=== PATIENT | male | born 1990 | race Caucasian/White ===

== ENCOUNTER 2020-07-11 20:20 | Emergency (ER) | payer BC, OTHER ==
[2020-07-11] MEDS ORDERED: Cyclobenzaprine 10 MG Tab PO ONE ×2 (20:21→22:14)
[2020-07-11] MEDS ORDERED: Acetaminophen/HYDROcodone 325-10 MG Tab PO ONE (22:14)
--- NOTE | 2020-07-11 23:29 | CT ---
PROCEDURE INFORMATION: Exam: CT Thoracic Spine Without Contrast Exam date and time: 07/11/2020 10:31 PM Age: 30 years old Clinical indication: Injury or trauma; Fall; Blunt trauma (contusions or hematomas); Additional info: Jumping up for ball fell, missed feet rib back eddie TECHNIQUE: Imaging protocol: Computed tomography images of the thoracic spine without contrast. Radiation optimization: All CT scans at this facility use at least one of these dose optimization techniques: automated exposure control; mA and/or kV adjustment per patient size (includes targeted exams where dose is matched to clinical indication); or iterative reconstruction. COMPARISON: No relevant prior studies available. FINDINGS: Vertebrae: No acute fracture. Normal alignment. Discs/Spinal canal/Neural foramina: No significant disc protrusion. No severe spinal canal stenosis. No significant neural foraminal narrowing. Soft tissues: Unremarkable. IMPRESSION: Unremarkable CT Spine.
--- NOTE | 2020-07-11 23:32 | CT ---
PROCEDURE INFORMATION: Exam: CT Chest Without Contrast; Diagnostic Exam date and time: 07/11/2020 10:31 PM Age: 30 years old Clinical indication: Injury or trauma; Fall; Blunt trauma (contusions or hematomas); Additional info: Jumping up for ball fell, missed feet rib back eddie TECHNIQUE: Imaging protocol: Diagnostic computed tomography of the chest without contrast. Radiation optimization: All CT scans at this facility use at least one of these dose optimization techniques: automated exposure control; mA and/or kV adjustment per patient size (includes targeted exams where dose is matched to clinical indication); or iterative reconstruction. COMPARISON: No relevant prior studies available. FINDINGS: Lungs: Unremarkable. No consolidation. No masses. Pleural spaces: Unremarkable. No pneumothorax. No pleural effusion. Heart: Unremarkable. No cardiomegaly. No pericardial effusion. Aorta: Unremarkable. No aortic aneurysm. Lymph nodes: Unremarkable. No enlarged lymph nodes. Bones/joints: Unremarkable. No acute fracture. Soft tissues: Unremarkable. IMPRESSION: No acute findings.
--- NOTE | 2020-07-11 23:37 | CT ---
PROCEDURE INFORMATION: Exam: CT Lumbar Spine Without Contrast Exam date and time: 07/11/2020 10:31 PM Age: 30 years old Clinical indication: Injury or trauma; Fall; Blunt trauma (contusions or hematomas); Additional info: Jumping up for ball fell, missed feet rib back eddie TECHNIQUE: Imaging protocol: Computed tomography images of the lumbar spine without contrast. Radiation optimization: All CT scans at this facility use at least one of these dose optimization techniques: automated exposure control; mA and/or kV adjustment per patient size (includes targeted exams where dose is matched to clinical indication); or iterative reconstruction. COMPARISON: No relevant prior studies available. FINDINGS: Vertebrae: No acute fracture. Normal alignment. Discs/Spinal canal/Neural foramina: No significant disc protrusion. No severe spinal canal stenosis. No significant neural foraminal narrowing. Soft tissues: Unremarkable. IMPRESSION: No acute findings.
[2020-07-11] MEDS ORDERED: Cyclobenzaprine 10 MG Tab ONE (23:44)
--- NOTE | 2020-07-11 23:46 | EDM.PDOC ---
ED HPI GENERAL MEDICAL PROBLEM - General Chief Complaint: Back Pain or Injury Stated Complaint: FELL PAIN IN BACK, RIBS, SHOULDER Time Seen by Provider: 07/11/20 21:40 Source of Information: Reports: Patient, RN History Limitations: Reports: No Limitations - History of Present Illness INITIAL COMMENTS - FREE TEXT/NARRATIVE: ED with c/o left rib anterior and later, thoraci and low back pain. Stated playing softball and jumped up for ball missed landing and landed on back and side No loss of consciousness, No neck pain. Pain with any movement and breathing. Middle Back Pain Score (Numeric/FACES): 9 - Related Data Allergies Allergy/AdvReac Type Severity Reaction Status Date / Time No Known Allergies Allergy Verified 07/11/20 21:32 Home Meds: Home Meds . [No Known Home Meds] 07/11/20 [History] Past Medical History Immunologic History: Reports: None Social & Family History - Tobacco Use Tobacco Use Status *Q: Never Tobacco User Second Hand Smoke Exposure: No - Caffeine Use Caffeine Use: Reports: Coffee, Energy Drinks, Soda, Tea, Other - Recreational Drug Use Recreational Drug Use: No ED ROS GENERAL - Review of Systems Review Of Systems: Comprehensive ROS is negative, except as noted in HPI. ED EXAM, UPPER BACK/NECK PAIN - Physical Exam Exam: See Below Exam Limited By: No Limitations General Appearance: Alert, Moderate Distress Eye Exam: Bilateral Eye: EOMI Ears Exam: Normal External Exam, Hearing Grossly Normal Nose Exam: Normal Inspection Throat/Mouth Exam: Normal Inspection, Normal Voice, No Airway Compromise Head Exam: Atraumatic, Normocephalic Neck Exam: Full Range of Motion. No: Tender Midline Nexus Criteria: Painful Distraction Injuries. No: Posterior, Midline Cervical Tenderness, Evidence of Intoxication, Altered Level of Consciousness, Focal Neurological Deficit Cardiovascular/Respiratory: Regular Rate, Rhythm, Normal Peripheral Pulses, No JVD, No Respiratory Distress, Other (left lateral posterior chest wall tenderness with movement palpation). 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, No Motor/Sensory Deficits Psychiatric: Normal Affect Skin Exam: Normal Color, Warm/Dry Course - Vital Signs Last Recorded V/S: Last Vital Signs Temp 97.9 F 07/11/20 21:26 Pulse 84 07/11/20 23:49 Resp 18 07/11/20 23:49 BP 128/65 07/11/20 23:49 Pulse Ox 96 07/11/20 23:49 - Orders/Labs/Meds Labs: Laboratory Tests 07/11/20 Range/Units 22:14 Urine Color Yellow (YELLOW) Urine Appearance Clear (CLEAR) Urine pH 6.5 (5.0-9.0) Ur Specific [place] >= 1.030 (1.005-1.030) Urine Protein Negative (NEGATIVE) Urine Glucose (UA) Negative (NEGATIVE) Urine Ketones Trace H (NEGATIVE) Urine Occult Blood Negative (NEGATIVE) Urine Nitrite Negative (NEGATIVE) Urine Bilirubin Negative (NEGATIVE) Urine Urobilinogen 0.2 (0.2-1.0) mg/dL Ur Leukocyte Esterase Negative (NEGATIVE) Meds: Medications Discontinued Medications Generic Name Dose Route Start Last Admin Trade Name Romy PRN Reason Stop Dose Admin Hydrocodone Bitart/Acetaminophen 1 tab 07/11/20 22:14 07/11/20 22:19 Acetaminophen/Hydrocodone 325-10 Mg Tab PO 07/11/20 22:15 1 tab ONETIME ONE Administration Cyclobenzaprine HCl 10 mg 07/11/20 22:14 07/11/20 22:18 Cyclobenzaprine 10 Mg Tab PO 07/11/20 22:15 10 mg ONETIME ONE Administration Cyclobenzaprine HCl Confirm 07/11/20 23:44 07/11/20 23:48 Cyclobenzaprine 10 Mg Tab Administered 07/11/20 23:45 Not Given Dose 20 mg .ROUTE .STK-MED ONE Departure - Departure Time of Disposition: 23:41 Disposition: Home, Self-Care 01 Condition: Good Clinical Impression: Muscle spasm, Rib pain on left side Fall Qualifiers: Encounter type: initial encounter Qualified Code(s): W19.XXXA - Unspecified fall, initial encounter Back pain Qualifiers: Back pain location: thoracic back pain Chronicity: acute Back pain laterality: unspecified Qualified Code(s): M54.6 - Pain in thoracic spine - Discharge Information *PRESCRIPTION DRUG MONITORING PROGRAM REVIEWED*: No *COPY OF PRESCRIPTION DRUG MONITORING REPORT IN PATIENT WM: No Instructions: Muscle Cramps and Spasms, [id number] Forms: ED Department Discharge Additional Instructions: Alternate tylenol 500mg and ibuprofen 600mg every 4 hours as needed for discomfor flexeril 10mg one every 8 hours sa needed for muscle spasm icy hot or bengay type product as needed deep breathing exercises every 2 hours while awake follow up if symptoms worsen Sepsis Event Note (ED) - Evaluation Sepsis Screening Result: No Definite Risk - Focused Exam Vital Signs: Vital Signs Temp Pulse Resp BP Pulse Ox 07/11/20 23:49 84 18 128/65 96 07/11/20 21:26 97.9 F 83 20 116/74 100
== END 2020-07-11 23:51 | disposition home or self-care (01) ==
LOC: DL.ED 20:20
DX: R07.81 Pleurodynia (principal); M62.838 Other muscle spasm; W17.89XA Other fall from one level to another, initial encounter; Y93.64 Activity, baseball
CPT/HCPCS: 71250; 72128; 72131; 81003; 99284; A9270; 99283